=== PATIENT | female | born 1955 | race Caucasian/White ===

== ENCOUNTER → 2019-06-14 | Outpatient (CLI) | payer OTHER ==
[~2019-06-14] MED LIST: Aspirin EC81 MG PO; B Complex1 EAC2 PO; Coenzyme Q10200 M2 PO; DHEA 10 MG TAB1 EACH PO; ESTR.1TPW TOP; PROBIOTIC COMP1 EACH PO; PROG100 PO; Synthroid112 MCG PO; VITAMIN D35000 UNIT PO
[2019-06-16 15:07] LABS: HPV 16 Negative (Negative); HPV 18 Negative (Negative); HPV OTHER HR TYPES Negative (Negative)
== END | disposition home or self-care (01) ==
LOC: LAB 19:17 → LAB SHORT 19:17
PROVIDERS: Obstetrics & Gynecology Gynecology
DX: Z12.4 Encounter for screening for malignant neoplasm of cervix (principal)
CPT/HCPCS: 87624; G0123

== ENCOUNTER → 2020-10-30 | Outpatient (CLI) | payer OTHER ==
[~2020-10-30] MED LIST changes: +DHEA; +MAGCIT300
== END ==
LOC: LAB SHORT 11:14 → PLD 11:14
DX: D22.5 Melanocytic nevi of trunk (principal); D48.5 Neoplasm of uncertain behavior of skin
CPT/HCPCS: 88305

== ENCOUNTER 2021-10-23 07:41 | Day surgery (SDC) | payer OTHER ==
[~2021-10-23] VITALS: Ht 175.3 cm; Wt 73.2 kg
--- NOTE | 2021-10-23 08:18 | NUR ---
10/23/21 0818 Tamara Samano CALL LIGHT WITHIN REACH. TETRACAIN DROPS IN AT 0809 AND PLEDGETT AT 0811
== END 2021-10-23 09:49 | disposition home or self-care (01) ==
LOC: ORSCSDS 07:41
PROVIDERS: Ophthalmology
PROC: 08RK3JZ Replacement of Left Lens with Synthetic Substitute, Percutaneous Approach (ICD-10-PCS; principal; 2021-10-23 09:00)
DX: H25.12 Age-related nuclear cataract, left eye (principal); E03.9 Hypothyroidism, unspecified; Z79.899 Other long term (current) drug therapy
CPT/HCPCS: J2001; J2250; J3010; J3301; J7040; V2632

== ENCOUNTER → 2022-08-11 | Outpatient (CLI) | payer OTHER ==
[2022-08-11 12:07] LABS: Source, Urine Clean Catch
[2022-08-11 12:13] LABS: Appearance, Urine Hazy (Clear); Bilirubin, Urine Neg (Neg); Blood, Urine 5+ (Neg); Color, Urine Yellow (P-Yellow); Glucose Qualitative, Urine Neg (Neg); Ketones, Urine Neg (Neg); Leukocyte Esterase, Urine 3+ (Neg); Nitrite, Urine Neg (Neg); Protein, Urine 1+ (Neg); Specific Gravity, Urine 1.005 (1.003-1.022); Urobilinogen, Urine NORM (Normal)
[2022-08-11 12:34] LABS: White Blood Cells, Urine 50-100 /hpf (0-5)
[2022-08-11 12:35] LABS: Bacteria Few /hpf; Squamous Epithelial Cells Rare /hpf (Few)
== END | disposition home or self-care (01) ==
LOC: LAB SHORT 11:04 → LAB 11:04
PROVIDERS: Internal Medicine
DX: R30.0 Dysuria (principal)
CPT/HCPCS: 81001; 87086

== ENCOUNTER 2023-08-19 10:40 | Day surgery (SDC) | payer OTHER ==
[~2023-08-19] VITALS: Ht 175.3 cm; Wt 78.0 kg
--- NOTE | 2023-08-19 11:26 | NUR ---
08/19/[address] NOTIFIED BY AMADOU MONTGOMERY OF PATIENT IRREGULAR HEART BEAT.
[2023-08-19 12:09] VITALS: BP 140/79
== END 2023-08-19 12:22 | disposition home or self-care (01) ==
LOC: ORSCSDS 10:40
PROVIDERS: Ophthalmology
PROC: 08RJ3JZ Replacement of Right Lens with Synthetic Substitute, Percutaneous Approach (ICD-10-PCS; principal; 2023-08-19 12:00)
DX: H25.11 Age-related nuclear cataract, right eye (principal); Z96.1 Presence of intraocular lens; E03.9 Hypothyroidism, unspecified; K21.9 Gastro-esophageal reflux disease without esophagitis; Z79.899 Other long term (current) drug therapy
CPT/HCPCS: J2250; J3010; J3301; J7040; V2632

== ENCOUNTER 2024-11-03 11:24 | Day surgery (SDC) | payer OTHER ==
[~2024-11-03] VITALS: Ht 175.3 cm; Wt 78.2 kg
[~2024-11-03 11:24] MED LIST changes: +EPINEPhrine HCl 1 MG/ML 1ML Amp ONE; +Lactated Ringer's 1,000 ML IV ONE; +Lidocaine HCl 2% 10 ML SDA ONE; +Ropivacaine 0.5% HCL/PF 5 MG/ML 30ML Vial ONE
[2024-11-03] MEDS ORDERED: CeFAZolin Sodium 2,000 MG VIAL ONE (12:06)
[2024-11-03] MEDS ORDERED: LEVOTHYROXINE25 MC9 PO (12:30)
[2024-11-03] MEDS ORDERED: Lactated Ringer's 1,000 ML IV ONE (12:59)
[2024-11-03] MEDS ORDERED: propofoL 20 ML IV ONE (13:45)
[2024-11-03] MEDS ORDERED: FentaNYL Citrate 50 MCG/ML 2 ML Injection ONE (13:45)
[2024-11-03] MEDS ORDERED: Dexamethasone Sod Phos 10 MG/ML 1ML VIAL ONE ×2 (13:49→13:50)
[2024-11-03] MEDS ORDERED: Ondansetron HCl 2 MG / ML 2ML Vial ONE ×2 (13:49→13:50)
[2024-11-03] MEDS ORDERED: Ketorolac Tromethamine 30mg Vial ONE (13:50)
--- NOTE | 2024-11-03 13:57 | NUR ---
11/03/24 Zeinab Schulz 30ML OF ROPIVACAINE 0.5% MIXED WITH 0.15ML OF EPI (1MG/ML) TO MAKE ROPIVACAINE 0.5% WITH EPI 1:200,000 FOR INJECTION AT THE OPSITE.
[2024-11-03 14:38] VITALS: BP 142/80
== END 2024-11-03 15:08 | disposition home or self-care (01) ==
LOC: ORSCSDS 11:24
PROVIDERS: Podiatrist Foot & Ankle Surgery
PROC: 0QBP0Z2 Excision of Left Metatarsal, Sesamoid Bone(s) 1st Toe, Open Approach (ICD-10-PCS; principal; 2024-11-03 13:00)
DX: M25.872 Other specified joint disorders, left ankle and foot (principal); M79.672 Pain in left foot; Z79.899 Other long term (current) drug therapy
CPT/HCPCS: J0171; J0690; J1100; J1885; J2003; J2405; J2704; J2795; J3010; J7120

== ENCOUNTER → 2025-01-23 | Outpatient (CLI) | payer OTHER ==
[~2025-01-23] MED LIST changes: -EPINEPhrine HCl 1 MG/ML 1ML Amp ONE; +LEVOTHYROXINE25 MC9 PO; -Lactated Ringer's 1,000 ML IV ONE; -Lidocaine HCl 2% 10 ML SDA ONE; -Ropivacaine 0.5% HCL/PF 5 MG/ML 30ML Vial ONE
[2025-01-23 14:05] LABS: Source, Urine Clean Catch
[2025-01-23 15:26] LABS: Appearance, Urine Hazy (Clear); Bilirubin, Urine Neg (Neg); Blood, Urine 5+ (Neg); Color, Urine Yellow (P-Yellow); Glucose Qualitative, Urine Neg (Neg); Ketones, Urine 1+ (Neg); Leukocyte Esterase, Urine 3+ (Neg); Nitrite, Urine Neg (Neg); Protein, Urine 3+ (Neg); Urobilinogen, Urine 1+ (Normal)
[2025-01-23 15:39] LABS: Bacteria Many /hpf; Squamous Epithelial Cells Mod /hpf (Few); White Blood Cells, Urine 25-50 /hpf (0-5)
[2025-01-23 15:40] LABS: Hyaline Casts 0-2 /lpf (0-2)
== END ==
LOC: LAB 14:03 → LAB SHORT 14:03
PROVIDERS: Internal Medicine
DX: R30.0 Dysuria (principal)
CPT/HCPCS: 81001; 87077; 87086; 87186

== ENCOUNTER → 2025-08-28 | Outpatient (CLI) | payer OTHER | LOC: LAB SHORT 18:09 → LAB 18:09 | PROVIDERS: Internal Medicine | DX: Z12.4 Encounter for screening for malignant neoplasm of cervix (principal) | CPT/HCPCS: 87624; G0145 ==